=== PATIENT | female | born 1980 | race Caucasian/White ===

== ENCOUNTER 2023-02-12 08:32 | Outpatient (CLI) | payer BC | END 2023-02-12 08:33 | disposition home or self-care (01) | LOC: CSHULT 08:32 | PROVIDERS: ATTEND Family Medicine | DX: R59.9 Enlarged lymph nodes, unspecified (principal); R59.0 Localized enlarged lymph nodes | CPT/HCPCS: 76536 ==

== ENCOUNTER 2023-04-11 15:13 | Outpatient (CLI) | payer BC | END 2023-04-11 15:14 | disposition home or self-care (01) | LOC: CSHMAMMO 15:13 | PROVIDERS: ATTEND Obstetrics & Gynecology | DX: Z12.31 Encounter for screening mammogram for malignant neoplasm of breast (principal) | CPT/HCPCS: 77063; 77067 ==

== ENCOUNTER 2023-09-11 10:08 | Outpatient (CLI) | payer BC | END 2023-09-11 10:09 | disposition home or self-care (01) | LOC: CSHRAD 10:08 | PROVIDERS: ATTEND Family Medicine Sports Medicine | DX: M47.812 Spondylosis without myelopathy or radiculopathy, cervical region (principal); R10.2 Pelvic and perineal pain | CPT/HCPCS: 72050; 72170 ==

== ENCOUNTER 2023-12-20 15:03 | Outpatient (CLI) | payer BC | END 2023-12-20 15:04 | disposition home or self-care (01) | LOC: CSHRAD 15:03 | PROVIDERS: ATTEND Family Medicine Sports Medicine | DX: M54.50 Low back pain, unspecified (principal) | CPT/HCPCS: 72100 ==